=== PATIENT | female | born 1960 | race Two or more races ===

== ENCOUNTER 2021-12-23 07:49 | Inpatient (IN) | payer MEDICAID, OTHER ==
[~2021-12-23] VITALS: Ht 157.5 cm; Wt 60.5 kg
[2021-12-23] MEDS ORDERED: SODIUM CHLORIDE 0.9% 1,000 ML IV ONE ×2 (08:45)
[2021-12-23] MEDS ORDERED: MORPHINE SULFATE INJ 2 MG/ml SYRG IV ONE (08:45)
[2021-12-23] MEDS ORDERED: PROCHLORPERAZINE EDISYLATE 5 MG/ML 2ML VIAL IV ONE (08:45)
[2021-12-23 09:14] LABS: Albumin 3.5 g/dL (3.4-5.0); Calcium 9.6 mg/dL (8.5-10.1); Potassium 4.7 mmol/L (3.5-5.1)
[2021-12-23 09:17] LABS: Bilirubin, Total 1.3 mg/dL (0.2-1.0); Total Protein 7.2 g/dL (6.4-8.2)
[2021-12-23 09:49] LABS: Basophils # (auto) 0 10 ^3/uL (0-0.2); Basophils % (auto) 0.1 % (0.0-2.0); Eosinophils # (auto) 0 10 ^3/uL (0-0.8); Lymphocytes # (auto) 0.9 10 ^3/uL (0.4-5.4); Mean Corpuscular Hgb Conc. 33.7 g/dL (32.0-36.0); Monocytes # (auto) 0.7 10 ^3/uL (0-1.3); Monocytes % (auto) 4.2 % (0.0-12.0); Neutrophils # (auto) 14.2 10 ^3/uL (1.6-8.6); Red Cell Distribution Width 13.1 % (11.8-14.3); White Blood Cell 15.8 10^3/uL (4.4-10.8)
[2021-12-23 09:51] LABS: Hematocrit 54.2 % (36.0-46.0); Hemoglobin 18.3 g/dL (12.2-16.2); Lymphocytes % (auto) 5.8 % (10.0-50.0); Mean Corpuscular Hemoglobin 30.5 pg (28.0-32.0); Mean Corpuscular Volume 90.6 fL (80.0-100.0); Neutrophils % (auto) 89.9 % (37.0-80.0); Nucleated Red Blood Cells % 0.1 %; Red Blood Cells 5.99 10^6/uL (4.0-5.20)
[2021-12-23] MEDS ORDERED: metroNIDAZOLE 500MG/100ML 100 ML IV ONE (11:00)
[2021-12-23] MEDS ORDERED: cefTRIAXone 1GM/50ML D5W 50 ML IV ONE (11:00)
[2021-12-23 15:53] LABS: Lactic Acid w/Reflex 2.1 mmol/L (0.4-2.0)
[2021-12-23] MEDS ORDERED: SODIUM CHLORIDE 0.9% 1,000 ML IV SCH ×2 (16:15→19:45)
[2021-12-23] MEDS ORDERED: ONDANSETRON HCL 4 MG/2 ML VIAL IV PRN ×3 (16:15→19:45)
[2021-12-23] MEDS ORDERED: HYDROmorphone HCL 2 MG/ML VL/or syr IV PRN ×3 (16:15→19:45)
[2021-12-23 16:50] LABS: INR 1.11 (0.9-1.15)
[2021-12-23] MEDS ORDERED: PANTOPRAZOLE 80 MG in SODIUM CHL 0.9% 100 ML IV ONE (17:00)
[2021-12-23] MEDS ORDERED: HYDROmorphone HCL 2 MG/ML VL/or syr IV ONE ×2 (17:00→19:45)
[2021-12-23] MEDS ORDERED: SODIUM CHLORIDE 0.9% 2,000 ML IV ONE (17:00)
[2021-12-23] MEDS ORDERED: PANTOPRAZOLE 40mg/50ML NS AE 50 ML IV SCH (17:00)
[2021-12-23] MEDS ORDERED: PROPOFOL 10 MG/ML 20 ML IV ONE (18:13)
[2021-12-23] MEDS ORDERED: fentaNYL CITRATE 100 MCG/2 ML VL ONE (18:13)
[2021-12-23] MEDS ORDERED: ROCURONIUM 10MG/ML 10ML VIAL IV ONE (18:13)
[2021-12-23] MEDS ORDERED: MIDAZOLAM HCL 2MG/2ML 2ml VIAL (1mg/ml) ONE (18:13)
[2021-12-23] MEDS ORDERED: LIDOCAINE 2% (LOCAL ANESTH.) PF 5ml SDV ONE (18:14)
[2021-12-23] MEDS ORDERED: ONDANSETRON HCL 4 MG/2 ML VIAL ONE (18:14)
[2021-12-23] MEDS ORDERED: SUCCINYLCHOLINE CHLORIDE 20 MG/ML 10ML VIAL IV ONE (18:28)
[2021-12-23] MEDS ORDERED: POVIDONE IODINE 10 % TOPICAL OINT 30GM TOP ONE (19:25)
[2021-12-23] MEDS ORDERED: NEOSTIGMINE 1 MG/ML INJ (10mg/10ML VIAL) ONE (19:53)
[2021-12-23] MEDS ORDERED: GLYCOPYRROLATE 0.2 MG/ML 1ML VIAL ONE (19:53)
[2021-12-23] MEDS ORDERED: SODIUM CHLORIDE 0.9% 1,750 ML IV ONE (20:00)
[2021-12-23] MEDS ORDERED: VANCOMYCIN PER PHARMACY 0 MG IV SCH (20:00)
[2021-12-23] MEDS ORDERED: VANCOMYCIN 1GM/250ML 250 ML IV ONE (20:45)
[2021-12-23 22:00] VITALS: BP 150/75
[2021-12-23] MEDS ORDERED: metroNIDAZOLE 500MG/100ML 100 ML IV SCH (22:00)
[2021-12-23 22:40] VITALS: BP 150/75
[2021-12-23] MEDS: metroNIDAZOLE 500MG/100ML 100 ML IV SCH (22:50)
[2021-12-23] MEDS: D5W/SOD CHL 0.45%/KCL 20MEQ 1,000 ML IV SCH (22:51)
[2021-12-23] MEDS: MORPHINE SULFATE INJ 2 MG/ml SYRG IV PRN (23:00)
[2021-12-24] MEDS: PIPERACILLIN-TAZOB 3.375GM 100 ML IV SCH ×4 (00:23→21:50)
[2021-12-24] MEDS: D5W/SOD CHL 0.45%/KCL 20MEQ 1,000 ML IV SCH ×3 (04:05→20:45)
[2021-12-24 05:00] VITALS: BP 149/80
[2021-12-24] MEDS: metroNIDAZOLE 500MG/100ML 100 ML IV SCH (05:28)
[2021-12-24 06:26] LABS: Albumin 2.1 g/dL (3.4-5.0); Calcium 8.2 mg/dL (8.5-10.1); Potassium 4.9 mmol/L (3.5-5.1)
[2021-12-24 06:30] LABS: BUN/Creatinine Ratio 28.8; Bilirubin, Total 0.8 mg/dL (0.2-1.0); Total Protein 4.9 g/dL (6.4-8.2)
[2021-12-24 06:32] LABS: Basophils # (auto) 0 10 ^3/uL (0-0.2); Basophils % (auto) 0.2 % (0.0-2.0); Eosinophils # (auto) 0 10 ^3/uL (0-0.8); Hematocrit 51.3 % (36.0-46.0); Hemoglobin 17.1 g/dL (12.2-16.2); Lymphocytes # (auto) 1.3 10 ^3/uL (0.4-5.4); Lymphocytes % (auto) 7.9 % (10.0-50.0); Mean Corpuscular Hemoglobin 30.4 pg (28.0-32.0); Mean Corpuscular Hgb Conc. 33.3 g/dL (32.0-36.0); Mean Corpuscular Volume 91.2 fL (80.0-100.0); Monocytes # (auto) 0.8 10 ^3/uL (0-1.3); Monocytes % (auto) 4.6 % (0.0-12.0); Neutrophils # (auto) 14.8 10 ^3/uL (1.6-8.6); Neutrophils % (auto) 87.3 % (37.0-80.0); Red Blood Cells 5.63 10^6/uL (4.0-5.20)
[2021-12-24 08:00] VITALS: BP 140/80
[2021-12-24] MEDS ORDERED: cefTRIAXone 1GM/50ML D5W 50 ML IV SCH ×2 (09:00)
[2021-12-24 09:12] LABS: Magnesium 1.8 mg/dL (1.6-2.6)
[2021-12-24 09:15] LABS: Phosphorus 4.4 mg/dL (2.5-4.90)
[2021-12-24] MEDS ORDERED: TPN PER PHARMACY 0 ML IV SCH (10:00)
[2021-12-24] MEDS ORDERED: DEXTROSE (50%) 50ML SYRG IV SCH (10:00)
[2021-12-24] MEDS ORDERED: VANCOMYCIN 1GM/250ML 250 ML IV ONE (10:30)
[2021-12-24 11:13] LABS: Alcohol, Urine < 3.0 mg/dL (0-10); Amphetamine Screen, Urine NEGATIVE (NEGATIVE); Barbiturate Scree,Urine NEGATIVE (NEGATIVE); Benzodiazephine Screen, Urine POSITIVE (NEGATIVE); Cannabinoid Screen, Urine POSITIVE (NEGATIVE); Cocaine Screen, Urine NEGATIVE (NEGATIVE); Opiate Scree,Urine POSITIVE (NEGATIVE); Phencyclidine Screen, Urine NEGATIVE (NEGATIVE)
[2021-12-24 11:17] LABS: Urine Bacteria NONE SEEN /hpf (None Seen); Urine Blood 1+ /uL (Negative); Urine Mucus FEW (None Seen); Urine Specific Gravity 1.037 (1.001-1.035); Urine WBC 2 /hpf (0 - 5)
[2021-12-24 12:00] VITALS: BP 144/91
[2021-12-24] MEDS: InsuLIN REG 1unit/0.01ml Soln (100units/ml) SC SCH ×2 (12:00→17:55)
[2021-12-24] MEDS ORDERED: LIDOCAINE 1% (LOCAL ANESTH.) PF 5ml SDV ID ONE (12:15)
[2021-12-24] MEDS: ACCU-CHEK COMFORT CURVE STRIP VI SCH ×2 (12:28→17:54)
[2021-12-24] MEDS: PANTOPRAZOLE 40mg/50ML NS AE 50 ML IV SCH ×3 (12:28→23:23)
[2021-12-24] MEDS: MORPHINE SULFATE INJ 2 MG/ml SYRG IV PRN (14:28)
[2021-12-24 16:00] VITALS: BP 122/95
[2021-12-24 20:00] VITALS: BP 132/65
[2021-12-24] MEDS ORDERED: PPN PER PHARMACY IV NR ×9 (20:00)
[2021-12-24] MEDS: SODIUM CHLOR 0.9% PF (SALINE LOCK) 10ML VIAL/SYR IV SCH (21:50)
[2021-12-24 23:37] VITALS: BP 132/55
[2021-12-24] MEDS: VANCOMYCIN 750mg/250ml 250 ML IV SCH (23:49)
[2021-12-25] MEDS: InsuLIN REG 1unit/0.01ml Soln (100units/ml) SC SCH ×5 (00:03→23:27)
[2021-12-25] MEDS: D5W/SOD CHL 0.45%/KCL 20MEQ 1,000 ML IV SCH ×2 (05:05→06:55)
[2021-12-25] MEDS: PANTOPRAZOLE 40mg/50ML NS AE 50 ML IV SCH ×3 (05:14→20:07)
[2021-12-25] MEDS: PIPERACILLIN-TAZOB 3.375GM 100 ML IV SCH ×3 (05:38→21:22)
[2021-12-25] MEDS: ACCU-CHEK COMFORT CURVE STRIP VI SCH ×5 (05:38→23:28)
[2021-12-25 05:47] VITALS: BP 136/76
[2021-12-25 06:37] LABS: Basophils # (auto) 0 10 ^3/uL (0-0.2); Basophils % (auto) 0.2 % (0.0-2.0); Eosinophils # (auto) 0 10 ^3/uL (0-0.8); Hematocrit 45.2 % (36.0-46.0); Hemoglobin 14.9 g/dL (12.2-16.2); Lymphocytes # (auto) 1.3 10 ^3/uL (0.4-5.4); Lymphocytes % (auto) 6.4 % (10.0-50.0); Mean Corpuscular Hemoglobin 30.1 pg (28.0-32.0); Mean Corpuscular Hgb Conc. 32.9 g/dL (32.0-36.0); Mean Corpuscular Volume 91.5 fL (80.0-100.0); Monocytes # (auto) 0.7 10 ^3/uL (0-1.3); Monocytes % (auto) 3.7 % (0.0-12.0); Neutrophils # (auto) 17.7 10 ^3/uL (1.6-8.6); Neutrophils % (auto) 89.7 % (37.0-80.0); Red Blood Cells 4.94 10^6/uL (4.0-5.20); Red Cell Distribution Width 13.1 % (11.8-14.3); White Blood Cell 19.7 10^3/uL (4.4-10.8)
[2021-12-25 06:59] LABS: Albumin 1.7 g/dL (3.4-5.0); Magnesium 2.2 mg/dL (1.6-2.6); Potassium 4.1 mmol/L (3.5-5.1)
[2021-12-25 07:04] LABS: Bilirubin, Total 0.5 mg/dL (0.2-1.0); Phosphorus 1.8 mg/dL (2.5-4.90); Total Protein 4.4 g/dL (6.4-8.2)
[2021-12-25 08:00] VITALS: BP 151/70
[2021-12-25] MEDS: SODIUM CHLOR 0.9% PF (SALINE LOCK) 10ML VIAL/SYR IV SCH ×2 (10:11→21:22)
[2021-12-25] MEDS ORDERED: SODIUM PHOSP 40 MEQ in D5W 5% 250 ML IV ONE (10:15)
[2021-12-25] MEDS ORDERED: D5W/SOD CHL 0.45%/KCL 20MEQ 1,000 ML IV SCH (10:15)
[2021-12-25] MEDS: VANCOMYCIN 750mg/250ml 250 ML IV SCH ×2 (10:36→23:29)
[2021-12-25] MEDS: KETOROLAC TROMETH 30 MG/ML 1ML VIAL IV PRN (11:58)
[2021-12-25 12:00] VITALS: BP 135/64
[2021-12-25 16:00] VITALS: BP 118/72
[2021-12-25] MEDS ORDERED: TPN PER PHARMACY IV NR ×10 (20:00)
[2021-12-25] MEDS ORDERED: PPN PER PHARMACY IV NR ×10 (20:00)
[2021-12-25 22:00] VITALS: BP 132/62
[2021-12-26] MEDS: PANTOPRAZOLE 40mg/50ML NS AE 50 ML IV SCH ×5 (02:46→23:23)
[2021-12-26 04:57] VITALS: BP 137/71
[2021-12-26 05:12] LABS: Basophils # (auto) 0 10 ^3/uL (0-0.2); Basophils % (auto) 0.2 % (0.0-2.0); Eosinophils # (auto) 0 10 ^3/uL (0-0.8); Eosinophils % (auto) 0.1 % (0.0-7.0); Hematocrit 40.9 % (36.0-46.0); Hemoglobin 13.3 g/dL (12.2-16.2); Lymphocytes # (auto) 1.3 10 ^3/uL (0.4-5.4); Lymphocytes % (auto) 6.9 % (10.0-50.0); Mean Corpuscular Hemoglobin 29.6 pg (28.0-32.0); Mean Corpuscular Hgb Conc. 32.4 g/dL (32.0-36.0); Mean Corpuscular Volume 91.1 fL (80.0-100.0); Monocytes # (auto) 1.2 10 ^3/uL (0-1.3); Monocytes % (auto) 6.4 % (0.0-12.0); Neutrophils # (auto) 16.7 10 ^3/uL (1.6-8.6); Neutrophils % (auto) 86.4 % (37.0-80.0); Red Blood Cells 4.49 10^6/uL (4.0-5.20); Red Cell Distribution Width 13.3 % (11.8-14.3); White Blood Cell 19.4 10^3/uL (4.4-10.8)
[2021-12-26 05:35] LABS: Albumin 1.7 g/dL (3.4-5.0); Potassium 3.2 mmol/L (3.5-5.1)
[2021-12-26 05:41] LABS: BUN/Creatinine Ratio 37.5; Bilirubin, Total 0.6 mg/dL (0.2-1.0); Calcium 7.9 mg/dL (8.5-10.1); Magnesium 2.4 mg/dL (1.6-2.6); Phosphorus 2.9 mg/dL (2.5-4.90); Total Protein 4.5 g/dL (6.4-8.2)
[2021-12-26] MEDS: InsuLIN REG 1unit/0.01ml Soln (100units/ml) SC SCH ×4 (05:50→23:06)
[2021-12-26] MEDS: ACCU-CHEK COMFORT CURVE STRIP VI SCH ×4 (05:50→22:58)
[2021-12-26] MEDS: PIPERACILLIN-TAZOB 3.375GM 100 ML IV SCH ×3 (05:50→21:37)
[2021-12-26 09:00] VITALS: BP 128/68
[2021-12-26] MEDS: SODIUM CHLOR 0.9% PF (SALINE LOCK) 10ML VIAL/SYR IV SCH ×2 (11:12→21:37)
[2021-12-26] MEDS: VANCOMYCIN 750mg/250ml 250 ML IV SCH (11:12)
[2021-12-26] MEDS: POTASSIUM CHL 20MEQ/100ML 100 ML IV SCH ×2 (12:41→14:50)
[2021-12-26 13:00] VITALS: BP 131/62
[2021-12-26 17:00] VITALS: BP 137/72
[2021-12-26] MEDS ORDERED: TPN PER PHARMACY IV NR ×11 (20:00)
[2021-12-26 22:00] VITALS: BP 138/80
[2021-12-26] MEDS: VANCOMYCIN 1GM/250ML 250 ML IV SCH (23:07)
[2021-12-27 04:16] LABS: Basophils # (auto) 0 10 ^3/uL (0-0.2); Basophils % (auto) 0.1 % (0.0-2.0); Eosinophils # (auto) 0 10 ^3/uL (0-0.8); Eosinophils % (auto) 0.1 % (0.0-7.0); Hematocrit 38.3 % (36.0-46.0); Hemoglobin 12.7 g/dL (12.2-16.2); Lymphocytes # (auto) 1.2 10 ^3/uL (0.4-5.4); Lymphocytes % (auto) 7.5 % (10.0-50.0); Mean Corpuscular Hemoglobin 30.1 pg (28.0-32.0); Mean Corpuscular Hgb Conc. 33.1 g/dL (32.0-36.0); Monocytes # (auto) 1.4 10 ^3/uL (0-1.3); Monocytes % (auto) 8.6 % (0.0-12.0); Neutrophils # (auto) 13.6 10 ^3/uL (1.6-8.6); Neutrophils % (auto) 83.7 % (37.0-80.0); Red Blood Cells 4.21 10^6/uL (4.0-5.20); Red Cell Distribution Width 13.3 % (11.8-14.3); White Blood Cell 16.2 10^3/uL (4.4-10.8)
[2021-12-27 04:35] LABS: Albumin 1.7 g/dL (3.4-5.0); Calcium 8.1 mg/dL (8.5-10.1); Magnesium 2.1 mg/dL (1.6-2.6); Potassium 3.1 mmol/L (3.5-5.1)
[2021-12-27 04:46] LABS: Bilirubin, Total 0.6 mg/dL (0.2-1.0); Phosphorus 2.8 mg/dL (2.5-4.90); Total Protein 5.6 g/dL (6.4-8.2)
[2021-12-27 05:00] VITALS: BP 132/79
[2021-12-27] MEDS: PANTOPRAZOLE 40mg/50ML NS AE 50 ML IV SCH ×5 (05:19→23:35)
[2021-12-27] MEDS: ACCU-CHEK COMFORT CURVE STRIP VI SCH ×4 (05:21→23:14)
[2021-12-27] MEDS: InsuLIN REG 1unit/0.01ml Soln (100units/ml) SC SCH ×4 (05:21→23:15)
[2021-12-27] MEDS: PIPERACILLIN-TAZOB 3.375GM 100 ML IV SCH ×3 (05:46→21:45)
[2021-12-27 09:00] VITALS: BP 126/68
[2021-12-27] MEDS ORDERED: GASTROGRAFIN 120 ML SOL ONE (09:34)
[2021-12-27] MEDS: SODIUM CHLOR 0.9% PF (SALINE LOCK) 10ML VIAL/SYR IV SCH ×2 (10:00→21:45)
[2021-12-27] MEDS: KETOROLAC TROMETH 30 MG/ML 1ML VIAL IV PRN ×2 (10:32→22:16)
[2021-12-27] MEDS: VANCOMYCIN 1GM/250ML 250 ML IV SCH (10:36)
[2021-12-27 13:00] VITALS: BP 131/57
[2021-12-27] MEDS: POTASSIUM CHL 20MEQ/100ML 100 ML IV SCH ×2 (15:00→16:59)
[2021-12-27 17:00] VITALS: BP 142/63
[2021-12-27] MEDS ORDERED: POTASSIUM CHL 20MEQ/100ML 100 ML IV SCH (20:00)
[2021-12-27] MEDS ORDERED: TPN PER PHARMACY IV NR ×11 (20:00)
[2021-12-27 21:59] VITALS: BP 144/67
[2021-12-28 04:51] VITALS: BP 130/55
[2021-12-28] MEDS: PANTOPRAZOLE 40mg/50ML NS AE 50 ML IV SCH ×4 (05:14→23:45)
[2021-12-28] MEDS: InsuLIN REG 1unit/0.01ml Soln (100units/ml) SC SCH ×3 (05:38→18:00)
[2021-12-28] MEDS: ACCU-CHEK COMFORT CURVE STRIP VI SCH ×3 (05:40→18:24)
[2021-12-28] MEDS: PIPERACILLIN-TAZOB 3.375GM 100 ML IV SCH ×3 (05:40→23:46)
[2021-12-28 06:05] LABS: Potassium 3.6 mmol/L (3.5-5.1)
[2021-12-28 06:17] LABS: Albumin 1.7 g/dL (3.4-5.0); BUN/Creatinine Ratio 34.5; Bilirubin, Total 0.6 mg/dL (0.2-1.0); Calcium 7.7 mg/dL (8.5-10.1); Magnesium 2.6 mg/dL (1.6-2.6); Phosphorus 3.7 mg/dL (2.5-4.90)
[2021-12-28 08:58] VITALS: BP 142/66
[2021-12-28] MEDS: SODIUM CHLOR 0.9% PF (SALINE LOCK) 10ML VIAL/SYR IV SCH ×2 (10:52→23:46)
[2021-12-28 12:25] VITALS: BP 136/71
[2021-12-28 17:11] VITALS: BP 117/64
[2021-12-28] MEDS ORDERED: TPN PER PHARMACY IV NR ×11 (20:00)
[2021-12-28 22:00] VITALS: BP 103/52
[2021-12-28] MEDS: KETOROLAC TROMETH 30 MG/ML 1ML VIAL IV PRN (23:47)
[2021-12-29] MEDS: PANTOPRAZOLE 40mg/50ML NS AE 50 ML IV SCH ×5 (00:45→23:27)
[2021-12-29 05:00] VITALS: BP 127/61
[2021-12-29 05:23] LABS: Basophils # (auto) 0.1 10 ^3/uL (0-0.2); Basophils % (auto) 0.4 % (0.0-2.0); Eosinophils # (auto) 0.1 10 ^3/uL (0-0.8); Eosinophils % (auto) 0.9 % (0.0-7.0); Hematocrit 35.8 % (36.0-46.0); Lymphocytes % (auto) 13.9 % (10.0-50.0); Mean Corpuscular Hemoglobin 30.3 pg (28.0-32.0); Mean Corpuscular Hgb Conc. 33.6 g/dL (32.0-36.0); Mean Corpuscular Volume 90.1 fL (80.0-100.0); Monocytes # (auto) 1.3 10 ^3/uL (0-1.3); Monocytes % (auto) 8.9 % (0.0-12.0); Neutrophils # (auto) 10.9 10 ^3/uL (1.6-8.6); Neutrophils % (auto) 75.9 % (37.0-80.0); Nucleated Red Blood Cells % 0.1 %; Red Blood Cells 3.98 10^6/uL (4.0-5.20); Red Cell Distribution Width 13.8 % (11.8-14.3); White Blood Cell 14.3 10^3/uL (4.4-10.8)
[2021-12-29 05:37] LABS: BUN/Creatinine Ratio 20.6; Calcium 7.8 mg/dL (8.5-10.1); Potassium 4.1 mmol/L (3.5-5.1)
[2021-12-29] MEDS: PIPERACILLIN-TAZOB 3.375GM 100 ML IV SCH ×3 (06:42→23:27)
[2021-12-29 08:35] VITALS: BP 111/65
[2021-12-29] MEDS: SODIUM CHLOR 0.9% PF (SALINE LOCK) 10ML VIAL/SYR IV SCH ×2 (10:07→23:27)
[2021-12-29] MEDS: KETOROLAC TROMETH 30 MG/ML 1ML VIAL IV PRN ×2 (10:45→17:06)
[2021-12-29 12:40] VITALS: BP 128/65
[2021-12-29 16:30] VITALS: BP 143/65
[2021-12-29 22:00] VITALS: BP 140/70
[2021-12-30] MEDS: KETOROLAC TROMETH 30 MG/ML 1ML VIAL IV PRN ×2 (00:18→10:27)
[2021-12-30] MEDS: PANTOPRAZOLE 40mg/50ML NS AE 50 ML IV SCH ×5 (01:45→21:44)
[2021-12-30 03:58] LABS: Basophils # (auto) 0.1 10 ^3/uL (0-0.2); Basophils % (auto) 0.4 % (0.0-2.0); Eosinophils # (auto) 0.1 10 ^3/uL (0-0.8); Hematocrit 33.3 % (36.0-46.0); Hemoglobin 11.2 g/dL (12.2-16.2); Lymphocytes # (auto) 1.8 10 ^3/uL (0.4-5.4); Lymphocytes % (auto) 12.7 % (10.0-50.0); Mean Corpuscular Hemoglobin 30.6 pg (28.0-32.0); Mean Corpuscular Hgb Conc. 33.7 g/dL (32.0-36.0); Mean Corpuscular Volume 90.7 fL (80.0-100.0); Monocytes # (auto) 1.2 10 ^3/uL (0-1.3); Monocytes % (auto) 8.5 % (0.0-12.0); Neutrophils # (auto) 11.2 10 ^3/uL (1.6-8.6); Neutrophils % (auto) 77.4 % (37.0-80.0); Red Blood Cells 3.67 10^6/uL (4.0-5.20); Red Cell Distribution Width 13.7 % (11.8-14.3); White Blood Cell 14.4 10^3/uL (4.4-10.8)
[2021-12-30 04:12] LABS: BUN/Creatinine Ratio 13.8; Calcium 7.5 mg/dL (8.5-10.1); Potassium 3.8 mmol/L (3.5-5.1)
[2021-12-30 05:00] VITALS: BP 132/64
[2021-12-30] MEDS: PIPERACILLIN-TAZOB 3.375GM 100 ML IV SCH ×3 (05:45→21:39)
[2021-12-30 08:00] VITALS: BP 150/69
[2021-12-30 08:30] VITALS: BP 150/69
[2021-12-30] MEDS: SODIUM CHLOR 0.9% PF (SALINE LOCK) 10ML VIAL/SYR IV SCH ×2 (11:34→21:48)
[2021-12-30 12:00] VITALS: BP 147/67
[2021-12-30 16:00] VITALS: BP 143/64
[2021-12-30] MEDS ORDERED: HYDROcodone-ACET 5/325MG TAB PO ONE (17:15)
[2021-12-30 21:58] VITALS: BP 140/67
[2021-12-31] MEDS: PANTOPRAZOLE 40mg/50ML NS AE 50 ML IV SCH ×3 (02:46→12:45)
[2021-12-31 04:51] VITALS: BP 141/69
[2021-12-31] MEDS: PIPERACILLIN-TAZOB 3.375GM 100 ML IV SCH (05:43)
[2021-12-31 08:00] VITALS: BP 140/63
[2021-12-31 08:30] VITALS: BP 140/63
[2021-12-31] MEDS: SODIUM CHLOR 0.9% PF (SALINE LOCK) 10ML VIAL/SYR IV SCH (09:25)
[2021-12-31 12:00] VITALS: BP 141/66
[2021-12-31 14:24] VITALS: BP 141/66
== END 2021-12-31 15:33 | disposition home or self-care (01) | DRG 853 ==
LOC: ER 07:49 → EDBD 07:49 → OVERFLOW 16:24 → WEST WING 21:23 → TELE-WESTW 12-24 00:40
PROVIDERS: ADMIT Nurse Practitioner Family; ATTEND Internal Medicine Pulmonary Disease
PROC: 0DU607Z Supplement Stomach with Autologous Tissue Substitute, Open Approach (ICD-10-PCS; principal; 2021-12-23 18:27)
PROC: 02HV33Z Insertion of Infusion Device into Superior Vena Cava, Percutaneous Approach (ICD-10-PCS; 2021-12-24)
PROC: B548ZZA Ultrasonography of Superior Vena Cava, Guidance (ICD-10-PCS; 2021-12-24)
DX: A41.9 Sepsis, unspecified organism (principal); K25.6 Chronic or unspecified gastric ulcer with both hemorrhage and perforation; K65.9 Peritonitis, unspecified; R18.8 Other ascites; E86.0 Dehydration; F15.10 Other stimulant abuse, uncomplicated; R09.02 Hypoxemia; Z98.51 Tubal ligation status; Z90.710 Acquired absence of both cervix and uterus
CPT/HCPCS: 36415; 36569; 71045; 74176; 74246; 76700; 80048; 80053; 80202; 80307; 81001; 82962; 83036; 83605; 83690; 83735; 84100; 84478; 84484; 85025; 85610; 85730; 86850; 86900; 86901; 87040; 87086; 93005; 96365; 96367; 96375; 97110; 97116; 97163; 97530; C9113; G0378; J0330; J0696; J1815; J1885; J2001; J2250; J2405; J2543; J2704; J3480; J3490; J7060

== ENCOUNTER 2022-08-27 10:35 | Emergency (ER) | payer MEDICAID ==
[~2022-08-27] VITALS: Ht 149.9 cm; Wt 27.3 kg
[2022-08-27] MEDS ORDERED: KETOROLAC TROMETH 60MG/2ML VIAL IM ONE (12:00)
[2022-08-27] MEDS ORDERED: TETANUS-DIPTH-ACEL PERTUSSIS 0.5ML SYR Tdap IM ONE (12:00)
[2022-08-27] MEDS ORDERED: HYDROcodone-ACET 5/325MG TAB PO ONE (12:00)
[2022-08-27] MEDS ORDERED: HYDR-4902 PO (14:27)
[2022-08-27] MEDS ORDERED: IBUP-1454 PO (14:27)
[2022-08-27 14:41] VITALS: BP 120/65
== END 2022-08-27 14:44 | disposition home or self-care (01) ==
LOC: ER 10:35
DX: S82.142A Displaced bicondylar fracture of left tibia, initial encounter for closed fracture (principal); F12.10 Cannabis abuse, uncomplicated; X50.1XXA Overexertion from prolonged static or awkward postures, initial encounter; Y93.89 Activity, other specified; Y92.89 Other specified places as the place of occurrence of the external cause; Y99.8 Other external cause status
CPT/HCPCS: 29505; 73562; 90471; 90715; 96372; 99284; J1885